=== PATIENT | female | born 1955 | race Asian ===

== ENCOUNTER → 2021-05-20 | Outpatient (CLI) | payer MEDICARE, MEDICAID ==
[~2021-05-20] VITALS: Ht 147.3 cm; Wt 68.7 kg
[~2021-05-20] MED LIST: ACET-3385 PO; ASPI-1450 PO; ATOR40TA28 PO; CHOL-35 PO; CINA30 PO; GABA-1181 PO; LOSA50TA37 PO; OMEP20 PO
[2021-05-20 10:56] VITALS: BP 207/75
== END | disposition home or self-care (01) ==
LOC: SRCNTR 10:28
PROVIDERS: ATTEND Internal Medicine
DX: I12.0 Hypertensive chronic kidney disease with stage 5 chronic kidney disease or end stage renal disease (principal); E11.22 Type 2 diabetes mellitus with diabetic chronic kidney disease; N18.6 End stage renal disease; J44.9 Chronic obstructive pulmonary disease, unspecified; E78.5 Hyperlipidemia, unspecified; I25.10 Atherosclerotic heart disease of native coronary artery without angina pectoris; Z99.2 Dependence on renal dialysis; Z79.4 Long term (current) use of insulin
CPT/HCPCS: G0463

== ENCOUNTER 2023-01-02 05:31 | Emergency (ER) | payer MEDICARE, OTHER ==
[~2023-01-02] VITALS: Ht 152.4 cm; Wt 63.5 kg
[~2023-01-02 05:31] MED LIST changes: -CHOL-35 PO; +CHOL25TA4 PO; +LOSA-382 PO; -LOSA50TA37 PO
[2023-01-02] MEDS ORDERED: 0.9% SODIUM CHLORIDE 1,000 ML BAG IV ONE (05:33)
[2023-01-02] MEDS ORDERED: DEXTROSE 50%-WATER 25 GM/50 ML SYRINGE IVP ONE ×2 (05:33→06:15)
[2023-01-02] MEDS ORDERED: SODIUM BICARBONATE [ADULT] 8.4% 50 MEQ/50 ML SYRINGE IVP ONE ×3 (05:33→07:45)
[2023-01-02] MEDS ORDERED: CALCIUM GLUCONATE 100 MG/ML 10 ML IVP ONE (05:33)
[2023-01-02] MEDS ORDERED: NOREPINEPHRINE 8 MG/D5%-WATER 250 ML IV ONE (06:00)
[2023-01-02] MEDS ORDERED: CALCIUM GLUCONATE 0.465 MEQ/ML 10 ML VIAL IVP ONE (06:00)
[2023-01-02] MEDS ORDERED: INSULIN REGULAR, HUMAN 100 UNITS/ML IVP ONE ×2 (06:00→07:45)
[2023-01-02] MEDS ORDERED: PHENYLEPHRINE 200 MG/D5%-WATER 250 ML IV PRN (06:15)
[2023-01-02] MEDS ORDERED: VASOPRESSIN 40 UNITS in DEXTROSE 5%-WATER 98 ML IV PRN ×2 (06:15→07:00)
[2023-01-02 06:23] LABS: BASOPHILS % (AUTO) 0.8 % (0.0-2.0); EOSINOPHILS % (AUTO) 1.2 % (1.0-6.0); LYMPHOCYTES # (AUTO) 4.7 K/uL (1.0-4.8); MEAN CORPUSCULAR HEMOGLOBIN 31.9 pg (26.0-34.0); MEAN CORPUSCULAR HGB CONC 28.8 G/dL (31.0-37.0); MEAN CORPUSCULAR VOLUME 111 fL (80-100); MONOCYTES % (AUTO) 9.2 % (2.0-9.0); NEUTROPHILS # (AUTO) 4.8 K/uL (1.8-7.7); NEUTROPHILS % (AUTO) 44.8 % (40.0-70.0); PLATELET COUNT (AUTO) 95 K/uL (150-450); RED BLOOD CELL COUNT(AUTO) 0.98 MIL/uL (4.00-5.20); RED CELL DISTRIBUTION WIDTH 18.3 % (11.5-14.5)
[2023-01-02] MEDS ORDERED: MIDAZOLAM HCL 5 MG/ML VIAL ONE (06:34)
[2023-01-02] MEDS ORDERED: ROCURONIUM BROMIDE 10 MG/ML 5 ML VIAL ONE (06:35)
[2023-01-02 06:40] LABS: HEMATOCRIT 10.8 % (36-46); HEMOGLOBIN 3.1 g/dL (12.0-16.0); INR 1.4 (0.9-1.1); PROTHROMBIN TIME 14.6 SEC (9.4-11.6)
[2023-01-02] MEDS ORDERED: MIDAZOLAM HCL 5 MG/ML VIAL IVP ONE (06:45)
[2023-01-02] MEDS ORDERED: ROCURONIUM BROMIDE 10 MG/ML 5 ML VIAL IVP ONE (06:45)
[2023-01-02 06:47] LABS: ALBUMIN 0.7 g/dL (3.4-5.0); BILIRUBIN,TOTAL 0.3 mg/dL (0.1-1.0); CALCIUM, TOTAL 8.9 mg/dL (8.8-10.5); CREATININE 4.7 mg/dL (0.60-1.30); TOTAL PROTEIN, SERUM 2.6 g/dL (6.4-8.2)
[2023-01-02 06:48] LABS: POTASSIUM 6.4 mmol/L (3.5-5.1)
[2023-01-02 07:01] LABS: GLUCOSE,POINT OF CARE 301 MG/DL (70-110)
[2023-01-02] MEDS ORDERED: PROPOFOL 1000 MG/ISO-OSM 100 ML IV PRN (07:45)
[2023-01-02] MEDS ORDERED: ONDANSETRON HCL 4 MG/2 ML VIAL IVP PRN (08:15)
[2023-01-02] MEDS ORDERED: DEXTROSE 50%-WATER 25 GM/50 ML SYRINGE IVP PRN (08:15)
[2023-01-02] MEDS ORDERED: PANTOPRAZOLE SODIUM 40 MG/VIAL IVP ONE (08:15)
[2023-01-02] MEDS ORDERED: PANTOPRAZOLE SODIUM 80 MG in SODIUM CHLORIDE 0.9% 100 ML IV SCH ×4 (08:15)
[2023-01-02] MEDS ORDERED: ACETAMINOPHEN 325 MG TABLET PO PRN (08:15)
[2023-01-02] MEDS ORDERED: OCTREOTIDE ACETATE 500 MCG in SODIUM CHLORIDE 0.9% 97.5 ML IV SCH (08:15)
[2023-01-02] MEDS ORDERED: INSULIN LISPRO 100 UNITS/ML SQ PRN (08:15)
[2023-01-02 08:41] LABS: GLUCOSE,POINT OF CARE 538 MG/DL (70-110)
[2023-01-02 08:51] LABS: EOSINOPHILS % (AUTO) 1.4 % (1.0-6.0); HEMATOCRIT 37.9 % (36-46); LYMPHOCYTES # (AUTO) 5.6 K/uL (1.0-4.8); LYMPHOCYTES % (AUTO) 21.7 % (22.0-44.0); MEAN CORPUSCULAR HEMOGLOBIN 29.9 pg (26.0-34.0); MEAN CORPUSCULAR HGB CONC 31.5 G/dL (31.0-37.0); MEAN CORPUSCULAR VOLUME 95 fL (80-100); MONOCYTES # (AUTO) 0.4 K/uL (0.1-1.0); MONOCYTES % (AUTO) 1.5 % (2.0-9.0); NEUTROPHILS # (AUTO) 19.2 K/uL (1.8-7.7); NEUTROPHILS % (AUTO) 74.4 % (40.0-70.0); PLATELET COUNT (AUTO) 180 K/uL (150-450); RED CELL DISTRIBUTION WIDTH 16.4 % (11.5-14.5)
[2023-01-02 09:09] LABS: ALBUMIN 1.1 g/dL (3.4-5.0); BILIRUBIN,TOTAL 0.6 mg/dL (0.1-1.0); CALCIUM, TOTAL 8.3 mg/dL (8.8-10.5); CREATININE 4.94 mg/dL (0.60-1.30); POTASSIUM 5.2 mmol/L (3.5-5.1); TOTAL PROTEIN, SERUM 3.8 g/dL (6.4-8.2)
[2023-01-02 09:20] VITALS: BP 106/89
== END 2023-01-02 13:57 ==
LOC: EMS 05:32
DX: I46.9 Cardiac arrest, cause unspecified (principal); K92.2 Gastrointestinal hemorrhage, unspecified; D64.9 Anemia, unspecified; T82.838A Hemorrhage due to vascular prosthetic devices, implants and grafts, initial encounter; E11.22 Type 2 diabetes mellitus with diabetic chronic kidney disease; I12.0 Hypertensive chronic kidney disease with stage 5 chronic kidney disease or end stage renal disease; N18.6 End stage renal disease; Z99.2 Dependence on renal dialysis
CPT/HCPCS: 36556; 82550; 82962; 83880; 84484; 85025; 85610; 85730; 86850; 86900; 86901; 86920; 94002; 71045; 92950; 36430; 93005; 96365; 96366; 96376; 96375; 99291; 80053; 36415; 94003; P9016; J0610; J1815; J3490 ×3; C9113; J2250; Q9967; J7060; J7030; J7050; J2370; J2354